=== PATIENT | female | born 1955 | race Caucasian/White ===

== ENCOUNTER → 2016-10-11 | Outpatient (CLI) | payer MEDICARE, OTHER ==
[~2016-10-11] MED LIST: ABIL30TA2 PO; EFFE150C PO; FLUO60TA PO; HYDR-3535 PO; HYDR-3580 PO; HYDR25TA5 PO; LIPI10TA PO; LISI-515 PO; SOMA350T PO; SYMB160A INH
== END ==
LOC: HRSP 08:18
DX: J44.9 Chronic obstructive pulmonary disease, unspecified (principal); J45.909 Unspecified asthma, uncomplicated; R06.00 Dyspnea, unspecified
CPT/HCPCS: 94060; 94726; 94729